=== PATIENT | male | born 1975 | race African-American/Black ===

== ENCOUNTER 2020-11-25 13:02 | Emergency (ER) | payer MEDICAID ==
[~2020-11-25] VITALS: Ht 182.9 cm; Wt 72.6 kg
[2020-11-25] MEDS ORDERED: ENOXAPARIN80 MG/0.8 (13:11)
[2020-11-25] MEDS ORDERED: NITROSTAT0.4 M1 (13:12)
[2020-11-25] MEDS ORDERED: COZAAR 25 MG TA25 M1 PO (13:12)
[2020-11-25] MEDS ORDERED: FUROSEMIDE 40 M40 MG PO (13:12)
[2020-11-25] MEDS ORDERED: AMOX TR-K CLV1 EAC4 PO (13:13)
[2020-11-25] MEDS ORDERED: JANTOVEN5 MG PO (13:13)
[2020-11-25] MEDS ORDERED: CARVEDILOL12.5 MG PO (13:13)
[2020-11-25 13:49] LABS: ABSOLUTE EOSINOPHILS 0.3 thou/uL (0.0-0.7); ABSOLUTE LYMPHOCYTES 1.9 thou/uL (0.8-5.3); ABSOLUTE MONOCYTES 0.5 thou/uL (0.0-1.2); ABSOLUTE NEUTROPHILS 3.8 thou/uL (1.6-8.1); BASOPHILS 0.3 %; EOSINOPHILS 3.8 %; HEMATOCRIT 44.3 % (42.0-52.0); LYMPHOCYTES 28.7 %; MCHC 31.6 g/dL (28.0-37.0); MCV 79.3 fL (80.0-100.0); MONOCYTES 8.4 %; MPV 9.2 fl. (7.2-11.1); NUCLEATED RBCS 0 /100WBC; PLATELET COUNT* 230 thou/uL (150-400); POLYS 58.8 %; RBC 5.59 mil/uL (4.50-6.00); RDW-CV 14.9 % (10.5-14.5); WBC 6.5 thou/uL (4.0-11.0)
[2020-11-25 13:58] LABS: INR 1.3; PROTIME 13.3 Seconds (9.20-11.50)
[2020-11-25 14:00] LABS: CALCIUM 8.7 mg/dL (8.5-10.1); CREATININE 1.1 mg/dL (0.6-1.3); POTASSIUM 3.7 mmol/L (3.5-5.1)
[2020-11-25 14:08] LABS: ALBUMIN 3.4 g/dL (3.4-5.0); TOTAL BILIRUBIN 0.3 mg/dL (<0.1-1.0); TOTAL PROTEIN 6.9 g/dL (6.4-8.2)
[2020-11-25] MEDS ORDERED: DOXYCYCLINE 10100 M2 PO (15:37)
[2020-11-25 15:42] VITALS: BP 140/96
--- NOTE | 2020-11-26 10:48 | EKG ---
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[place] : 1975 Requested By: Augustine Brar Order Number: [id number] MD: Kam Feliciano Measurements Intervals [place] Rate: 78 P: 51 MD: 226 QRS: -65 QRSD: 122 T: 106 QT: 412 QTc: 470 Interpretive Statements Pacemaker spikes or artifacts Sinus rhythm Prolonged MD interval Left atrial enlargement Nonspecific 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
--- NOTE | 2020-11-26 10:50 | EKG ---
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[place] : 1975 Requested By: Augustine Brar Order Number: [id number] Carlos Alberto MD: Kam Feliciano Measurements Intervals [place] Rate: 59 P: 45 TN: 213 QRS: -47 QRSD: 166 T: 135 QT: 471 QTc: 467 Interpretive Statements Sinus rhythm Prolonged TN interval Left bundle branch block Compared to ECG 11/25/2020 13:08:02 Left bundle-branch block now present Atrial abnormality no longer present Electronically Signed On 11-26-2020 10:50:03 CDT by Kam Feliciano [email or web address] <ELECTRONICALLY SIGNED> By: Kam Feliciano MD, [facility] 11/26/20 1050 1531 1531 Kam Feliciano MD, [facility] /EPI
== END 2020-11-25 15:44 | disposition left against medical advice (07) ==
LOC: M.ERS 13:02
PROVIDERS: Emergency Medicine Emergency Medical Services
DX: J18.9 Pneumonia, unspecified organism (principal)